=== PATIENT | female | born 1965 | race African-American/Black ===

== ENCOUNTER 2021-10-23 14:56 | Emergency (ER) | payer OTHER ==
[2021-10-23 15:17] VITALS: BP 150/89; PULSE 74; TEMP 97.5; BMI 32.8
[2021-10-23] MEDS ORDERED: predniSONE 20 MG TABLET (UD) PO ONE (15:37)
== END 2021-10-23 18:36 | disposition home or self-care (01) ==
LOC: JERFT 14:56 → JER 14:56 → JERFT 18:36
DX: G51.0 Bell's palsy (principal)
CPT/HCPCS: 70450-TC; 99284-25

== ENCOUNTER 2022-11-04 17:39 | Emergency (ER) | payer OTHER ==
[2022-11-04] MEDS ORDERED: SODIUM CHLORIDE 0.9% 500 ML INFUS.BAG IV ONE (18:01)
[2022-11-04] MEDS ORDERED: ONDANSETRON 4 MG/2 ML VIAL IVPUSH ONE (18:01)
[2022-11-04] MEDS ORDERED: HALOPERIDOL LACTATE 5 MG/ML IM ONE ×2 (18:55→18:57)
[2022-11-04] MEDS ORDERED: LORazepam 2 MG/ML SDV VIAL IM ONE (19:08)
[2022-11-04 23:59] LABS: BASO % 0.4 % (0-2.0); HEMATOCRIT 35.9 % (32.4-45.2); HEMOGLOBIN 11.6 GM/dL (10.7-15.3); LYMPH % 25.7 % (8-40); MCH 28.5 pg (25.7-33.7); MCHC 32.4 g/dl (32.0-36.0); MEAN CELL VOLUME 87.8 fl (80-96); MEAN PLT VOLUME 8.8 fl (7.5-11.1); MONO % 4.7 % (3.8-10.2); NEUT % 69.2 % (42.8-82.8); PLATELET COUNT 184 10^3/uL (134-434); RBC 4.08 M/mm3 (3.60-5.2); RDW 14.2 % (11.6-15.6); WHITE BLOOD COUNT 6.6 K/mm3 (4.0-10.0)
[2022-11-05 00:20] LABS: BLOOD UREA NITROGEN 7.7 mg/dL (7-18); CALCIUM 8.7 mg/dL (8.5-10.1)
[2022-11-05 00:22] LABS: ALBUMIN 3.1 g/dl (3.4-5.0)
[2022-11-05 00:24] LABS: CREATININE 0.6 mg/dL (0.55-1.3)
[2022-11-05 00:26] LABS: BILIRUBIN,TOTAL 0.2 mg/dL (0.2-1); TOT PROT 7.3 g/dl (6.4-8.2)
[2022-11-05 10:57] VITALS: BP 149/94; PULSE 87; RESP 15; TEMP 97.6
== END 2022-11-05 11:13 | disposition home or self-care (01) ==
LOC: JER 17:39
PROC: 3E0233Z Introduction of Anti-inflammatory into Muscle, Percutaneous Approach (ICD-10-PCS; principal; 2022-11-04)
PROC: 3E023NZ Introduction of Analgesics, Hypnotics, Sedatives into Muscle, Percutaneous Approach (ICD-10-PCS; 2022-11-04)
DX: F10.920 Alcohol use, unspecified with intoxication, uncomplicated (principal); Y90.9 Presence of alcohol in blood, level not specified
CPT/HCPCS: 36415; 70450-TC; 80053; 82550; 82553; 83690; 84484; 85025; 93005; 93010; 99285-25